=== PATIENT | female | born 1970 | race Caucasian/White ===

== ENCOUNTER 2022-12-17 05:51 | Emergency (ER) | payer OTHER, MEDICAID, SELFPAY ==
[2022-12-17 06:05] VITALS: BP 155/70; PULSE 65; RESP 16; TEMP 36.6; O2SAT 98; BMI 30.9
--- NOTE | 2022-12-17 06:09 | DI.CT.S_ITS ---
PROCEDURE: CT KIDNEY URETER BLADDER (KUB) INDICATIONS: eval for stone TECHNIQUE: Axial sections were acquired from the lung bases to the pubic symphysis. Coronal and sagittal reformats were performed. For radiation dose reduction, the following was used: automated exposure control, adjustment of mA and/or kV according to patient size. COMPARISON: None. FINDINGS: Lower thorax: The lung bases are clear. Heart size normal. No hiatal hernia. Liver: Normal in size and attenuation. No contour deformity present. Biliary system: Cholecystectomy. No intra or extrahepatic bile duct dilation. Pancreas: Unremarkable without mass or inflammation evident. Spleen: Normal in size and density. Adrenals: Normal morphology and density. Reproductive system: Unremarkable as visualized. Urinary system: Small 7 mm nonobstructing left renal calculus present in the lower pole. No evidence of hydronephrosis or hydroureter bilaterally. Gastrointestinal system: The bowel is unremarkable without evidence of bowel obstruction or inflammation. The stomach appears unremarkable. Appendix: No findings to suggest acute appendicitis. Peritoneal spaces: No mesenteric or retroperitoneal adenopathy. No free air. No free fluid. Vasculature: The IVC, aorta and iliac vasculature are unremarkable. Abdominal wall: Abdominal wall intact without evidence of ventral or inguinal hernias. Musculoskeletal: Normal bone mineralization. No acute fractures. IMPRESSION: 1. No acute CT findings in the abdomen and pelvis. 2. Incidental nonobstructive left renal calculus Note: Final report is concordant with preliminary interpretation by [facility] Approved by: Kenan Samaniego M.D. on 12/17/2022 at 8:57
--- NOTE | 2022-12-17 06:10 | ED_ITS ---
HPI - General Adult General Chief complaint: Urogenital-Female Stated complaint: back pain/blood in urine Time Seen by Provider: 12/17/22 05:54 Source: patient Mode of arrival: Ambulatory Limitations: no limitations History of Present Illness HPI narrative: Patient is a 52-year-old female who is here for evaluation of approximately 12 hours of urinary frequency, blood in her urine and lower back discomfort. She denies fevers, nausea vomiting, abdominal pain, change in bowel habits. She states last evening she urinated very frequently. It was the last urination where she had blood in it. She denies any trauma. She is never had a kidney stone in the past. She states that she is feeling like she empties her bladder when she does urinate. Related Data Allergies Allergy/AdvReac Type Severity Reaction Status Date / Time amoxicillin [From AUGMENTIN] AdvReac Intermediate Verified 12/17/22 06:09 clavulanic acid AdvReac Intermediate Verified 12/17/22 06:09 [From AUGMENTIN] Review of Systems Constitutional Constitutional: Reports system reviewed and no additional complaints, except as documented Gastrointestinal Gastrointestinal: Reports system reviewed and no additional complaints, except as documented Genitourinary Genitourinary: Reports system reviewed and no additional complaints, except as documented Musculoskeletal Musculoskeletal: Reports system reviewed and no additional complaints, except as documented Integumentary/Breasts Skin/Breast: Reports system reviewed and no additional complaints, except as documented Exam Initial Vital Signs Initial Vital Signs: Vital Signs Temperature 97.9 F 12/17/22 06:05 Pulse Rate 65 12/17/22 06:05 Respiratory Rate 16 12/17/22 06:05 Blood Pressure 155/70 H 12/17/22 06:05 Pulse Oximetry 98 12/17/22 06:05 Oxygen Delivery Method 12/17/22 06:05 Const General: cooperative and No ill appearing HENIA Head: normal to inspection and normocephalic Resp Effort & Inspection: normal respiratory effort Cardio Rate: regular rate Back/Spine/Pelvis Thoracic/Lumbar Spine: No paraspinal tenderness and No lumbar spinal tenderness Skin General: no rashes or lesions noted Neuro General: patient alert, patient awake and moves all extremities Course Orders Ordered: ED Orders 12/17/22 06:08 Urine Culture Stat Urine Microscopic Stat 12/17/22 06:09 CT kidney ureter bladder (KUB) Stat BMP [Basic Metabolic Panel] Stat CBC Auto Diff [Complete Blood Count AUTO DIFF] Stat Vital Signs Vital signs: Vital Signs - 8 hr 12/17/22 06:05 Temperature 97.9 F Pulse Rate 65 Respiratory Rate 16 Blood Pressure 155/70 H Pulse Oximetry 98 Oxygen Delivery Method Room Air Medical Decision Making Lab Data Lab results reviewed: Yes I reviewed the patient's lab results. 12/17/22 06:25 12/17/22 06:25 Labs: Lab Results 12/17/22 12/17/22 12/17/22 Range/Units 05:55 06:25 06:25 WBC 7.5 (4.5-11.0) X10^3/uL RBC 4.37 (4.0-5.2) X10^6/uL Hgb 13.7 (12.0-16.0) g/dL Hct 40.2 (36-46) % MCV 91.9 (80-100) fL MCH 31.3 (26-34) PG MCHC 34.0 (30-36) % RDW 13.4 (11.6-14.8) % Plt Count 179 (150-400) X10^3/uL Neut % (Auto) 50.1 (50-75) % Lymph % (Auto) 37.8 (25-40) % [place] % (Auto) 6.4 (3-14) % Eos % (Auto) 5.1 H (2-4) % Baso % (Auto) 0.6 (0-2) % Neut # (Auto) 3800 (9070-2288) /uL Lymph # (Auto) 2800 (9419-5808) /uL [place] # (Auto) 500 (0-900) /uL Eos # (Auto) 400 (0-450) /uL Baso # (Auto) 0 (0-100) /uL Sodium 139 (137-145) mmol/L Potassium 4.0 (3.4-5.1) mmol/L Chloride 106 (98-107) mmol/L Carbon Dioxide 25 (22-32) mmol/L BUN 23 H (7-17) mg/dL Creatinine 0.84 (0.52-1.04) mg/dL Estimated GFR > 60 (>60) mL/min BUN/Creatinine Ratio 27.4 H (6-22) Glucose 103 H (70-100) mg/dL Calcium 9.4 (8.4-10.2) mg/dL Urine RBC 5-10/hpf H (0-5/HPF) Urine WBC None seen (0-5/HPF) Urine Bacteria None seen (None) Ur Culture Indicated? Cult not indicated Micro UA Comment * Urine Dip Bedside Urine Glucose Negative Bedside Urine Bilirubin - Negative Bedside Urine Ketone - Negative Urine Specific [place] 1.005 Bedside Urine Occult Blood +++ Bedside Urine pH 6.0 Bedside Urine Protein - Negative Bedside Urine Urobilinogen - Negative Bedside Urine Nitrite - Negative Bedside Urine Leukocytes - Negative Esterase Point of care testing: Urine Dip Bedside Urine Glucose Negative Bedside Urine Bilirubin - Negative Bedside Urine Ketone - Negative Urine Specific [place] 1.005 Bedside Urine Occult Blood +++ Bedside Urine pH 6.0 Bedside Urine Protein - Negative Bedside Urine Urobilinogen - Negative Bedside Urine Nitrite - Negative Bedside Urine Leukocytes - Negative Esterase Imaging Data CT scan - abdomen/pelvis: Radiologist's Impression: Nonobstructing left renal stone MDM Narrative Medical decision making narrative: Patient does have hematuria but there is no signs of a urinary tract infection. I have low suspicion for pyelonephritis. She does have a nonobstructing right renal stone but no ureteral stone. I have low suspicion that this is what is causing her symptoms. Her kidney functions unremarkable. She is had no fever sore throat that would make you concern for post streptococcal glomerulonephritis. Patient is urinating. There is no indication for antibiotics. No indication for acute urologic consultation. We will have the patient stay hydrated. She was given specific return instructions. She will contact her primary doctor the beginning of next week to discuss follow-up so that she can have her urine tested once again to make sure that the blood is clearing. She expressed understanding and agreement with. Discharge Plan Departure Patient Disposition: Home Clinical Impression: Hematuria Instructions: DI for Hematuria Activity Restrictions/Additional Instructions: Recommend that you continue to stay hydrated. Return to the emergency departmen t for any new symptoms to include fevers, pain, problems with urinating. Contact your primary doctor for a follow-up to have your urine checked once again to make sure that the blood is clearing. Referrals: Christine Jacobo PA-C [Primary Care Provider] - Stand Alone Forms: Patient Portal/API
[2022-12-17 06:42] LABS: Add Manual Diff / Slide Review NO; Basophils Absolute Auto 0 /uL (0-100); Basophils Percent Auto 0.6 % (0-2); Eosinophils Absolute Auto 400 /uL (0-450); Eosinophils Percent Auto 5.1 % (2-4); Hematocrit 40.2 % (36-46); Hemoglobin 13.7 g/dL (12.0-16.0); Lymphocytes Absolute Auto 2800 /uL (1100-4500); Lymphocytes Percent Auto 37.8 % (25-40); Mean Corpuscular Hemoglobin 31.3 PG (26-34); Mean Corpuscular Volume 91.9 fL (80-100); Monocytes Absolute Auto 500 /uL (0-900); Monocytes Percent Auto 6.4 % (3-14); Neutrophils Absolute Auto 3800 /uL (1500-7000); Neutrophils Percent Auto 50.1 % (50-75); Platelet Count 179 X10^3/uL (150-400); Red Blood Cell Count 4.37 X10^6/uL (4.0-5.2); Red Cell Distribution Width 13.4 % (11.6-14.8); White Blood Cell Count 7.5 X10^3/uL (4.5-11.0)
[2022-12-17 07:20] LABS: BUN Creatinine Ratio 27.4 (6-22); Blood Urea Nitrogen 23 mg/dL (7-17); Calcium 9.4 mg/dL (8.4-10.2); Carbon Dioxide 25 mmol/L (22-32); Chloride 106 mmol/L (98-107); Estimated Glomerular Filt Rate > 60 mL/min (>60); Glucose 103 mg/dL (70-100); HEMOLYSIS < 15 (0-50); Sodium 139 mmol/L (137-145)
[2022-12-17 07:27] LABS: Bacteria Urine None Seen; Culture Indicated Urine Cult Not Indicated; RBC Urine 5-10/HPF (0-5/HPF); WBC Urine None Seen (0-5/HPF)
[2022-12-17 07:41] VITALS: BP 134/64; PULSE 57; RESP 24; O2SAT 97
== END 2022-12-17 07:43 | disposition home or self-care (01) ==
PROVIDERS: Emergency Provider Emergency Medicine; PCP Physician Assistant
DX: R31.9 Hematuria, unspecified (principal); N20.0 Calculus of kidney
CPT/HCPCS: 36415; 74176; 80048; 81003; 81015; 85025; 87086; 99283; 99284